=== PATIENT | male | born 1975 | race Caucasian/White ===

== ENCOUNTER 2022-04-16 05:39 | Emergency (ER) | payer OTHER ==
[2022-04-16] MEDS ORDERED: Ketorolac 30 MG/ML SDV IVPUSH ONE (06:20)
[2022-04-16] MEDS ORDERED: Sodium Chloride 0.9% 1,000 ML IV ONE (06:20)
[2022-04-16] MEDS ORDERED: Cyclobenzaprine 10 MG Tab PO ONE (06:21)
[2022-04-16] MEDS ORDERED: methylPREDNISolone Sodium Succinate 125 MG/2 ML SDV IVPUSH ONE (06:21)
[2022-04-16] MEDS ORDERED: Lidocaine 4% 1 each Patch TOP PRN (06:22)
[2022-04-16] MEDS ORDERED: Morphine 4 MG/ML Syringe IVPUSH ONE (07:34)
== END 2022-04-16 08:44 | disposition home or self-care (01) ==
LOC: JD.ED 05:39
DX: M46.1 Sacroiliitis, not elsewhere classified (principal)
CPT/HCPCS: 36415; 80053; 81001; 85007; 85027; 96361; 96374; 96375; 99284; A9270; J1885; J2270; J2930; J7030